=== PATIENT | male | born 2000 | race Hispanic/Latino ===

== ENCOUNTER 2021-03-06 03:16 | Inpatient (IN) | payer OTHER, SELFPAY ==
[2021-03-06] MEDS ORDERED: Boostrix 0.5 ML (Tdap) VIAL ONE (03:28)
[2021-03-06 03:56] LABS: Mean Corpuscular HGB CONC 34.4 g/dL (32.0-36.0); Mean Corpuscular Hemoglobin 30.8 pg (27.0-31.0); Mean Corpuscular Volume 89.4 fL (78.0-98.0); Mean Platelet Volume 7.3 fL (7.4-10.4); Platelet Count 285 thou/uL (130-400); RBC Distribution Width 11.4 % (11.5-14.5); Red Blood Cell (RBC) Count 4.54 mill/uL (4.70-6.10); White Blood Cell (WBC) Count 23.8 thou/uL (4.8-10.8)
[2021-03-06 04:05] LABS: ALT (SGPT) 39 U/L (8-55); AST (SGOT) 41 U/L (5-34); Albumin 4.1 g/dL (3.5-5.0); Alkaline Phosphatase 80 U/L (40-110); Anion Gap 18 mmol/L (10-20); BUN (Urea Nitrogen) 11 mg/dL (8.9-20.6); Bilirubin, Total 1.4 mg/dL (0.2-1.2); Calc. Creatinine Clearance 0 mL/min (70-130); Calcium 9.1 mg/dL (7.8-10.44); Carbon Dioxide 20 mmol/L (22-29); Chloride 107 mmol/L (98-107); Glucose 116 mg/dL (70-105); Potassium 3.6 mmol/L (3.5-5.1); Protein, Total 7.1 g/dL (6.0-8.3); Sodium 141 mmol/L (136-145)
[2021-03-06 04:10] LABS: Band 5 % (5-11); Lymphocytes 11 % (21-51); MDiff Complete? YES; Monocytes 5 % (0-10); Neutrophil 79 % (42-75); Platelet Morphology Comment Appears Adequate
[2021-03-06] MEDS ORDERED: traMADol HCl 50 MG TAB PO PRN ×2 (06:25)
[2021-03-06] MEDS ORDERED: Dextrose 5% in Water 1,000 ML IV PRN (06:25)
[2021-03-06] MEDS ORDERED: Dextrose 50% Abboject 50 ML SYRINGE SLOW IVP PRN (06:25)
[2021-03-06] MEDS ORDERED: Ondansetron PF 4 MG/2 ML Vial IVP PRN (06:25)
[2021-03-06] MEDS ORDERED: Cyclobenzaprine 10 MG TAB PO PRN (06:25)
[2021-03-06] MEDS ORDERED: hydrALAZINE 20 MG/ML VIAL SLOW IVP PRN (06:25)
[2021-03-06] MEDS ORDERED: Ondansetron ODT 4 MG TAB PO PRN (06:25)
[2021-03-06 09:36] VITALS: BMI 29.5
[2021-03-06] MEDS: Sodium Chloride 0.9% 1,000 ML IV SCH ×2 (09:44→14:36)
[2021-03-06] MEDS: Famotidine 20 MG TAB PO SCH ×2 (09:44→21:17)
[2021-03-06] MEDS: Senokot S 8.6-50 MG TAB PO SCH ×2 (09:44→21:18)
[2021-03-06] MEDS: Polyethylene Glycol 3350 17 GM Packet PO SCH (09:44)
[2021-03-06] MEDS: Enoxaparin Sodium 40 MG/0.4 ML SYRINGE SC SCH (09:44)
[2021-03-06] MEDS: Acetaminophen 500 MG TAB PO SCH ×2 (11:19→17:01)
[2021-03-06] MEDS: Ibuprofen 800 MG TAB PO SCH ×2 (13:13→21:17)
[2021-03-06] MEDS ORDERED: Iopamidol-370 76% 500 ML 1 ML ONE (13:34)
[2021-03-06 17:05] LABS: SARS-CoV-2 PCR by NAA Not Detected (NotDetected)
[2021-03-07] MEDS: Sodium Chloride 0.9% 1,000 ML IV SCH ×2 (00:33→05:47)
[2021-03-07] MEDS: Acetaminophen 500 MG TAB PO SCH ×3 (00:36→13:24)
[2021-03-07 05:44] LABS: #Basophils 0.1 thou/uL (0.0-0.2); #Eosinphils 0.2 thou/uL (0.0-0.7); #Lymphocytes 1.9 thou/uL (1.20-3.40); #Monocytes 0.7 thou/uL (0.11-0.59); #Neutrophils 7.4 thou/uL (1.40-6.50); %Basophils 0.5 % (0.0-1.0); %Lymphocytes 18.4 % (21.0-51.0); %Monocytes 7.1 % (0.0-10.0); %Neutrophils 71.9 % (42.0-75.0); Hemoglobin 12.1 g/dL (14.0-18.0); Mean Corpuscular HGB CONC 34.1 g/dL (32.0-36.0); Mean Corpuscular Hemoglobin 31.1 pg (27.0-31.0); Mean Corpuscular Volume 91.1 fL (78.0-98.0); Mean Platelet Volume 7.3 fL (7.4-10.4); Platelet Count 200 thou/uL (130-400); RBC Distribution Width 11.5 % (11.5-14.5); Red Blood Cell (RBC) Count 3.88 mill/uL (4.70-6.10); White Blood Cell (WBC) Count 10.3 thou/uL (4.8-10.8)
[2021-03-07] MEDS: Ibuprofen 800 MG TAB PO SCH (05:47)
[2021-03-07 06:06] LABS: Phosphorus 3.2 mg/dL (2.3-4.7)
[2021-03-07 06:09] LABS: Anion Gap 11 mmol/L (10-20); BUN (Urea Nitrogen) 11 mg/dL (8.9-20.6); CK (CPK) 356 U/L (30-200); Calc. Creatinine Clearance 211 mL/min (70-130); Calcium 8.6 mg/dL (7.8-10.44); Carbon Dioxide 25 mmol/L (22-29); Chloride 108 mmol/L (98-107); Glucose 94 mg/dL (70-105); Magnesium 1.8 mg/dL (1.6-2.6); Potassium 3.6 mmol/L (3.5-5.1); Sodium 140 mmol/L (136-145)
[2021-03-07] MEDS: Senokot S 8.6-50 MG TAB PO SCH (09:25)
[2021-03-07] MEDS: Famotidine 20 MG TAB PO SCH (09:26)
[2021-03-07] MEDS: Polyethylene Glycol 3350 17 GM Packet PO SCH (09:27)
[2021-03-07] MEDS: Enoxaparin Sodium 40 MG/0.4 ML SYRINGE SC SCH (09:27)
[2021-03-07 13:31] VITALS: BP 131/76; TEMP 98.1
== END 2021-03-07 14:05 | disposition home or self-care (01) | DRG 552 ==
LOC: ERS 03:16 → EEVIPCON 03:16 → EDBD 03:16 → EEVIPCON 06:19 → SURG A 06:19
PROVIDERS: ADMIT Surgery; ATTEND Surgery
DX: S32.039A Unspecified fracture of third lumbar vertebra, initial encounter for closed fracture (principal); S27.322A Contusion of lung, bilateral, initial encounter; Z20.822 Contact with and (suspected) exposure to COVID-19; V95.8XXA Other powered aircraft accidents injuring occupant, initial encounter; S00.83XA Contusion of other part of head, initial encounter; T14.8XXA Other injury of unspecified body region, initial encounter
CPT/HCPCS: 36415; 70450; 71045; 71260; 72125; 72170; 74177; 80048; 80053; 82550; 83735; 84100; 85025; 86850; 86900; 86901; 90471; 90715; 94640; G0390; J1650; J7620; Q9967; U0003; U0005